=== PATIENT | male | born 1995 | race Asian ===

== ENCOUNTER 2017-12-12 05:51 | Emergency (ER) | payer OTHER ==
[~2017-12-12] VITALS: Ht 177.8 cm; Wt 116.3 kg
[2017-12-12 05:56] VITALS: BP 131/78; TEMP 36.5; Ht 177.8 cm; Wt 116.3 kg
[2017-12-12] MEDS ORDERED: ALBUT/IPRATROP 3MG/0.5MG NEB 3 ML VIAL INH STA (06:08)
--- NOTE | 2017-12-12 06:23 | EMERGENCY ROOM VISIT NOTE ---
History First contact with patient: 06:01 Chief Complaint: RESPIRATORY PROBLEMS Stated Complaint: HARD TO BREATHE Nursing Triage Summary: asthma attack, does not have his inhaler, as he is only visiting History of Present Illness The patient is a 22 year old male who presents to the Emergency Room with complaints of an asthma exacerbation. The patient reports that he woke up this morning and felt chest tightness, shortness of breath and wheezing. He states this feels consistent with his previous asthma flareups. He typically uses an albuterol inhaler, but states he is visiting from out of town and forgot his inhaler at home. He denies any earaches, sore throat, cough or fevers. He has never been hospitalized for his asthma. He denies any other complaints. Review of Systems A complete 10 point review of systems was reviewed with the patient with pertinent positives and negatives as per history of present illness. All else were negative. Past Medical/Surgical History Medical Problems: (1) Asthma Social History Smoking Status: Never Smoker Alcohol Use: occasionally Marital Status: single Housing Status: lives with roommate Occupation Status: student ([employer] student) Current/Historical Medications Scheduled PRN Albuterol Hfa (Ventolin Hfa), 2 PUFFS INH Q6H PRN for SOB/Wheezing Physical Exam Vital Signs Date Time Temp Pulse Resp B/P (MAP) Pulse Ox O2 Delivery O2 Flow Rate FiO2 12/12/17 06:47 90 96 12/12/17 06:05 95 16 98 12/12/17 05:56 36.5 79 18 131/78 96 Room Air Physical Exam VITALS: Vitals are noted on the nurse's note and reviewed by myself. Vital signs stable. GENERAL: This is a 22-year-old male, in no acute distress, nondiaphoretic, well- developed well-nourished. SKIN: The skin was without rashes. EARS: External auditory canals clear, tympanic membranes pearly carpio without erythema or effusion bilaterally. EYES: Pupils equal round and reactive to light and accommodation. NOSE: Patent, turbinates without inflammation or discharge. MOUTH: Mucous membranes moist. Tonsils are not enlarged. Pharynx without erythema or exudate. NECK: Supple without nuchal rigidity. No lymphadenopathy. HEART: Regular rate and rhythm without murmurs gallops or rubs. LUNGS: Minimal expiratory wheezes in bilateral bases. No retractions or accessory muscle use. NEURO: Patient was alert and oriented to person place and time. Medical Decision & Procedures Medications Administered Medications (Trade) Dose Ordered Sig/Kian Route Start Time Stop Time Status Last Admin Dose Admin Albuterol/ Ipratropium (Duoneb) 3 ml NOW STAT INH 12/12/17 06:08 12/12/17 06:09 DC 12/12/17 06:14 3 ML Albuterol (Ventolin Hfa Inhaler) 2 puffs NOW ONCE INH 12/12/17 06:45 12/12/17 06:46 DC 12/12/17 06:45 2 PUFFS Medical Decision Differential diagnosis includes acute asthma exacerbation, influenza, pneumonia , among others. The patient was evaluated as above. He presents with symptoms consistent with asthma exacerbation. He does admit that he is visiting from out of town and did not bring his inhaler with him. He was given a DuoNeb treatment with significant improvement of his symptoms. Peak flows were performed before and after and improved significantly. He was given a Ventolin inhaler and instructed to follow-up with his primary care provider as needed. He verbalized understanding of my assessment and treatment plan and was discharged home in good condition. Medication Reconcilliation Current Medication List: was personally reviewed by mi Blood Pressure Screening Patient's blood pressure: Normal blood pressure Impression Primary Impression: Asthma exacerbation Departure Information Dispostion Home / Self-Care Condition GOOD Referrals No Doctor, Assigned (PCP) Patient Instructions [facility] [employer] [employer] Additional Instructions Use the Ventolin inhaler as needed for wheezing/shortness of breath. Follow-up with your primary care provider as needed for further evaluation of your asthma. Return to the emergency department with any worsening shortness of breath or other new/concerning symptoms. Problem Qualifiers Primary Impression: Asthma exacerbation
[2017-12-12] MEDS ORDERED: VNTHFA/IN INH (06:41)
[2017-12-12] MEDS ORDERED: ALBUTEROL HFA 8 GM INHALER INH ONE (06:45)
[2017-12-12 06:47] VITALS: PULSE 90; O2SAT 96
== END 2017-12-12 06:45 | disposition home or self-care (01) ==
LOC: C.EDB 05:53
DX: J45.901 Unspecified asthma with (acute) exacerbation (principal)